=== PATIENT | female | born 1995 | race Caucasian/White ===

== ENCOUNTER → 2021-06-14 13:03 | Outpatient (BNVA) | payer BC, MEDICAID, SELFPAY | PROVIDERS: Visit Provider Obstetrics & Gynecology | DX: Z34.90 Encounter for supervision of normal pregnancy, unspecified, unspecified trimester (principal); Z3A.00 Weeks of gestation of pregnancy not specified | CPT/HCPCS: 80307; 81000; 82950; 85027; 86592; 86762; 86803; 86850; 86900; 87086; 87340 ==

== ENCOUNTER → 2021-06-20 15:21 | Outpatient (BNVA) | payer BC, MEDICAID, SELFPAY | PROVIDERS: PCP Nurse Practitioner Family; Visit Provider Obstetrics & Gynecology | DX: Z12.4 Encounter for screening for malignant neoplasm of cervix (principal); Z34.80 Encounter for supervision of other normal pregnancy, unspecified trimester; O99.891 Other specified diseases and conditions complicating pregnancy; Z3A.00 Weeks of gestation of pregnancy not specified | CPT/HCPCS: 81000; 87491; 87591; 88175 ==

== ENCOUNTER → 2021-06-28 11:10 | Outpatient (BNVA) | payer BC, MEDICAID, SELFPAY | PROVIDERS: PCP Nurse Practitioner Family; Visit Provider Obstetrics & Gynecology | DX: Z34.90 Encounter for supervision of normal pregnancy, unspecified, unspecified trimester (principal); Z3A.00 Weeks of gestation of pregnancy not specified | CPT/HCPCS: 86850 ==

== ENCOUNTER → 2021-07-12 15:02 | Outpatient (BNVA) | payer BC, MEDICAID, SELFPAY | PROVIDERS: PCP Nurse Practitioner Family; Visit Provider Obstetrics & Gynecology | DX: Z34.80 Encounter for supervision of other normal pregnancy, unspecified trimester (principal); Z3A.00 Weeks of gestation of pregnancy not specified | CPT/HCPCS: 80307; 81000 ==

== ENCOUNTER → 2021-07-25 13:17 | Outpatient (BNVA) | payer BC, MEDICAID, SELFPAY | PROVIDERS: PCP Nurse Practitioner Family; Visit Provider Obstetrics & Gynecology | DX: Z34.80 Encounter for supervision of other normal pregnancy, unspecified trimester (principal); Z3A.00 Weeks of gestation of pregnancy not specified | CPT/HCPCS: 81000 ==

== ENCOUNTER → 2021-08-12 14:49 | Outpatient (BNVA) | payer BC, MEDICAID, SELFPAY | PROVIDERS: PCP Nurse Practitioner Family; Visit Provider Nurse Practitioner Women's Health | DX: O99.320 Drug use complicating pregnancy, unspecified trimester (principal); Z3A.00 Weeks of gestation of pregnancy not specified | CPT/HCPCS: 80307; 84315 ==

== ENCOUNTER → 2021-08-23 10:14 | Outpatient (BNVA) | payer BC, MEDICAID, SELFPAY | PROVIDERS: PCP Nurse Practitioner Family; Visit Provider Obstetrics & Gynecology | DX: Z34.90 Encounter for supervision of normal pregnancy, unspecified, unspecified trimester (principal); Z3A.00 Weeks of gestation of pregnancy not specified | CPT/HCPCS: 81000; 87081 ==

== ENCOUNTER → 2021-08-31 12:45 | Outpatient (BNVA) | payer BC, MEDICAID, SELFPAY | PROVIDERS: PCP Nurse Practitioner Family; Visit Provider Obstetrics & Gynecology | DX: Z34.90 Encounter for supervision of normal pregnancy, unspecified, unspecified trimester (principal) | CPT/HCPCS: 81000 ==

== ENCOUNTER → 2021-09-06 15:12 | Outpatient (BNVA) | payer BC, MEDICAID, SELFPAY | PROVIDERS: PCP Nurse Practitioner Family; Visit Provider Obstetrics & Gynecology | DX: Z34.90 Encounter for supervision of normal pregnancy, unspecified, unspecified trimester (principal); Z3A.00 Weeks of gestation of pregnancy not specified | CPT/HCPCS: 81000 ==

== ENCOUNTER 2021-09-09 08:30 | Inpatient (IN) | payer BC, MEDICAID, SELFPAY ==
[2021-09-09] VITALS (82 sets, daily range): BP systolic 102–152; BP diastolic 54–95; PULSE 61–96; RESP 16; TEMP 36.3–36.7; O2SAT 99–100; BMI 30.2
[2021-09-09 09:23] LABS: Basophils # 0.1 10^3/uL (0.0-0.1); Basophils % 0.7 %; Eosinophils # 0.2 10^3/uL (0.0-0.8); Eosinophils % 1.9 %; Hematocrit 33.9 % (37.0-47.0); Hemoglobin 11.3 g/dL (11.5-15.3); Lymphocytes # 3.7 10^3/uL (0.8-4.8); Lymphocytes % 28.5 %; Mean Corpuscular HGB Conc 33.3 g/dL (30.0-36.0); Mean Corpuscular Hemoglobin 30.1 pg (28.0-34.0); Mean Corpuscular Volume 90.4 fl (81-99); Mean Platelet Volume 10.8 fL (7.4-10.4); Monocytes # 1.1 10^3/uL (0.2-0.9); Monocytes % 8.3 %; Neutrophils # 7.71 10^3/uL (1.8-7.7); Nucleated Red Blood Cells % 0 %; Platelet Count 404 10^3/cmm (130-400); Red Blood Count 3.75 10^6/uL (4.1-5.3); Red Cell Distribution Width 13.6 % (12.1-15.1); White Blood Count 12.8 10^3/uL (4.0-10.0)
[2021-09-09] MEDS: miSOPROStol 100 mcg tablet 25 MCG VAGINAL (09:35)
[2021-09-09 09:42] LABS: Amphetamines Screen Urine Negative (Negative); Barbiturates Screen Urine Negative (Negative); Benzodiazepines Screen Urine Negative (Negative); Cocaine Screen Urine Negative (Negative); Opiate Screen Urine Negative (Negative); PCP Screen Urine Negative (Negative); THC Screen Urine Positive (Negative)
[2021-09-09] MEDS: lactated ringers 1,000 ML 999 ML IV (12:07)
--- NOTE | 2021-09-09 13:08 | P.ANESASSM_ITS ---
Pre-Anesthetic Assessment Height/Weight: Height 1.57 m Weight 74.843 kg Temp Pulse Resp BP Pulse Ox 97.3 F L 76 16 116/54 99 09/09/21 11:02 09/09/21 13:04 09/09/21 09:23 09/09/21 13:03 09/09/21 13:04 Epidural Familial anesthetic complications: patient developed PDPH with one of her previous epidurals - stated she had signicant parasthesia and jumped during procedure Was Beta Candy taken within 24 hours: N/A Was Clonidine taken within 24 hours: N/A Last intake: ice chips Social No alcohol and No tobacco Exam alert, oriented x 3, clear to auscultation bilaterally and regular rate & rhythm Airway Submandibular: within normal limits Mallampati: Class I Dentition: full Anesthetic Plan ASA status: 2 Anesthesia: Regional (specify below) (epidural) Risk of > 500 ml blood loss (7ml/kg in children): No Medications/Allergies Home Medications Medication Instructions Recorded Confirmed Last Taken Type prenat.vits,connie,bcb-ocxs-rtoin 1 tab PO DAILY 06/14/21 09/06/21 Unknown History acetaminophen 500 mg tablet 500 mg PO Q6H PRN 06/20/21 09/06/21 Unknown History (Tylenol Extra Strength) breast pump (Pump In Style #1 ea 07/12/21 09/06/21 Unknown Rx Advanced) Allergies Allergy/AdvReac Type Severity Reaction Status Date / Time hydrocodone AdvReac nausea Verified 09/06/21 14:59 Current Medications Generic Name Dose Route Start Last Admin Trade Name Freq PRN Reason Stop Dose Admin Lactated Ringer's 1,000 mls @ 999 mls/hr 09/09/21 11:51 09/09/21 12:07 Lactated Ringers IV 999 mls/hr .Q1H1M PRN Administration See label comments Misoprostol 25 mcg 09/09/21 09:30 09/09/21 09:35 Misoprostol 100 Mcg Tablet VAGINAL 09/09/21 17:31 25 mcg Q4H KVNG Administration PFSH Anesthesia Medical History No pertinent past medical history Denies diabetes, asthma, hypertension, seizures, DVT/PE PCP: Melany Villafana, [employer] Surgical History No history of previous surgery Family History Mother Hypertension Stroke Sister Thyroid condition 1/2 sister Grandmother Colon cancer maternal, diagnosed at age 76 paternal, age at diagnosis unknown Grandfather Colon cancer paternal, age at diagnosis unknown Denies family history of Ovarian cancer Diabetes Heart disease Hyperlipidemia Breast cancer Uterine cancer Female Reproductive History : 5 Data Anesthesia : 09/09/21 08:44 Short CBC 09/09/21 Range/Units 08:44 WBC 12.8 H (4.0-10.0) 10^3/uL Hgb 11.3 L (11.5-15.3) g/dL Hct 33.9 L (37.0-47.0) % MCV 90.4 (81-99) fl Plt Count 404 H (130-400) 10^3/cmm Neut % (Auto) 60.0 % Neut # (Auto) 7.71 H (1.8-7.7) 10^3/uL Cardiac Studies: No Data to Display
--- NOTE | 2021-09-09 13:09 | ANES.PROC ---
Anesthesia Procedures Procedure/Date: 09/09/21 Epidural: Time Out Performed: Yes Consents Signed: Procedure Consent Consent: requested by attending/covering physician, from patient, from other, risks and benefits reviewed and patient agrees to proceed Lumbar Level: L3-L4 Epidural position: sitting Epidural procedure: sterile prep of area, 1% lidocaine to numb the area, 18 g needle, negative for paresthesia passed, neg for paresthesia, test dose given, 1.5% xylocaine 1:200k epi (3), 0.2% Ropivacaine bolus ml (5), placed PCEA, no systemic response, sterile dressing applied, L.U.D. no apparent complications and 0.2% Ropiavacaine @ mls/hr (13) Additional Comments: LEYDA at 5 cm, threaded to 11 cm
[2021-09-09] MEDS: dextrose 5%-lactated ringers 1,000 ML 125 ML IV ×2 (14:00→18:17)
[2021-09-09] MEDS: ondansetron 2 mg/ML SDV 2 mL 4 MG IVP (16:02)
[2021-09-09] MEDS: oxytocin 30 UNIT/500 ML BAG IV (19:20)
--- NOTE | 2021-09-09 20:02 | PM.OPHPUD ---
Labor & Delivery H&P Update Date of Procedure: September 09, 2021 Date H&P Performed: 09/06/21 H&P update information: I have reviewed H&P completed within last 30 days, I have examined patient prior to procedure and Changes to prior documentation as noted here Changes to previous documentation: cervix is now 2/75/-3. Patient is vira irregularly. She is here for induction of labor for IUGR Admission Diagnosis:
--- NOTE | 2021-09-09 20:04 | PM.OPHPUD ---
Labor & Delivery H&P Update Date of Procedure: September 09, 2021 Date H&P Performed: 09/06/21 Admission Diagnosis: Related Problem List Diagnoses (1) IUGR (intrauterine growth restriction) affecting care of mother: (2) Atypical squamous cells cannot exclude high grade squamous intraepithelial lesion on cytologic smear of cervix (ASC-H): (3) Rubella non-immune status, antepartum: (4) Drug use affecting , antepartum: (5) Grand multiparity: (6) Rh negative, antepartum: (7) Supervision of normal : (8) Request for sterilization:
--- NOTE | 2021-09-09 20:39 | P.PCNOB_ITS ---
Delivery Note: Date of delivery: September 09, 2021 Pre-delivery diagnoses: iugr, rh negative, grand multiparity, request for sterilization, IUP@ 39 0/7 weeks Post-delivery diagnoses: same-delivered Procedure: Delivering Physician: Chris Estimated blood loss (mL): 3 Findings: term male in the ALEJANDRO presentation Pre-Delivery Course: The patient was admitted for induction at term for IUGR. She received a single dose of cytotec and began to have regular contractions. She had AROM and made a little change. Pitocin was started to a max of 3 mUnints. She had complete cervical dilation and began pushing Delivery: The patient had complete cervical dilation and began to push. The head delivered in the ALEJANDRO position over an intact perineum under epidural anesthesia. The nose and mouth were bulb suctioned. The shoulders and body delivered atraumatically. The baby was placed onto the mother's abdomen. The cord was clamped and cut. Cord blood was obtained. The placenta delivered spontaneously. It was inspected and found to be intact. Inspection of the perineum revealed no repair was required it was intact. Estimated blood loss 3 mL. Apgars on baby were 8 at 1 minute and 9 at 5 minutes. Weight of baby is 6 pounds 4 ounces. Mother and baby were stable post delivery. History History History 5 Term 3 Miscarriages/Ectopic 0 1 Living Children 4 Coding Level of Care Code Acute Mortgage Loan Counselor for Ileanag Jass
[2021-09-10] VITALS (12 sets, daily range): BP systolic 106–132; BP diastolic 58–75; PULSE 64–81; RESP 15–16; TEMP 35.8–36.6
[2021-09-10] MEDS: ibuprofen 800 mg tablet PO ×4 (00:28→20:29)
[2021-09-10] MEDS: benzocaine-menthol 78 gm Canister 1 SPRAY TOPICAL (00:30)
[2021-09-10] MEDS: acetaminophen 325 mg Tablet 650 MG PO ×2 (05:36→14:26)
--- NOTE | 2021-09-10 07:27 | ANE.PACU2 ---
Inpatient post-anesthesia follow up: Airway intact: Yes Vital signs: Temperature 98.1 F Pulse Rate 76 Respiratory Rate 16 Blood Pressure 114/70 Pulse Oximetry 99 Oxygen Delivery Me thod Room Air Oxygen Flow Rate Fraction of Inspir ed Oxygen Hydration adequate: Yes Nausea and vomiting: No Pain level: 1 Mental status: Baseline
[2021-09-10] MEDS: sodium chloride 0.9% 1,000 ML 999 ML IV (08:16)
[2021-09-10] MEDS: famotidine 20 mg/2 mL INJ IVP (08:32)
[2021-09-10] MEDS: citric acid-sodium citrate 30 mL UDC PO (08:32)
[2021-09-10] MEDS: metoclopramide 5 mg/mL SDV 2 mL 10 MG IVP (08:33)
--- NOTE | 2021-09-10 09:15 | PM.DCS ---
Discharge Providers Date of Admission: 09/09/21 08:30 Date of Discharge: September 10, 2021 Attending Provider at Admission: Magali Perez MD Attending Provider at Discharge: Magali Perez MD Primary Care Provider: Xochitl Villafana APN Diagnoses at Discharge Discharge Diagnosis (1) IUGR (intrauterine growth restriction) affecting care of mother: Status: Acute (2) Atypical squamous cells cannot exclude high grade squamous intraepithelial lesion on cytologic smear of cervix (ASC-H): Status: Acute (3) Rubella non-immune status, antepartum: Status: Acute (4) Drug use affecting , antepartum: Status: Acute (5) Grand multiparity: Status: Acute (6) Rh negative, antepartum: Status: Acute (7) Supervision of normal : Status: Acute (8) Request for sterilization: Status: Acute Reason for Visit Reason for Visit: induction Hospital Course Hospital Course The patient was admitted for induction of labor at term for iugr. She had spontaneous delivery of a term male . She did well . She desired a tubal ligation, but changed her mind the morning of surgery and decided that her partner would get a vasectomy instead. Physical Exam Narrative: Doing well. No concerns this morning. Refused to have tubal ligation as she has changed her mind. States, partner will get vasectomy, instead. Const: COMMON NORMALS: no acute distress, average body habitus, patient oriented x3, no limitations, healthy appearing, alert and well nourished GENERAL APPEARANCE: cooperative, comfortable, well kempt and well developed ORIENTATION/CONSCIOUSNESS: Yes awake, Yes oriented to person, Yes oriented to place and Yes oriented to time Resp: COMMON NORMALS: normal respiratory effort EFFORT & INSPECTION: Yes able to speak in complete sentences GI: COMMON NORMALS: Soft to palpation and non-tender PALPATION: Yes Soft to palpation Extremity: COMMON NORMALS: no calf tenderness Neuro: COMMON NORMALS: patient oriented x3 SENSORIUM/ORIENTATION: Yes alert, Yes oriented to person, Yes oriented to place and Yes oriented to time Psych: APPEARANCE: Yes well kempt Urinary Catheter Management: Rodriguez: Cath Placed During This Visit: yes, but has since been removed by the nurse Reason for Continuing Indwelling Catheter: Decision to DC Catheter Urinary Catheter Date of Insertion: 09/09/21 Urinary Catheter Time of Insertion: 13:30 Date Urinary Catheter Removed: 09/09/21 Time Urinary Catheter Discontinued: 20:22 Discharge Data Studies Completed and Pending Pending at discharge Category Date Time Status Hemagram Timed Lab 09/10/21 08:37 Received Laboratory Results WBC 12.8 10^3/uL (4.0-10.0) H 09/09/21 08:44 RBC 3.75 10^6/uL (4.1-5.3) L 09/09/21 08:44 Hgb 11.3 g/dL (11.5-15.3) L 09/09/21 08:44 Hct 33.9 % (37.0-47.0) L 09/09/21 08:44 MCV 90.4 fl (81-99) 09/09/21 08:44 MCH 30.1 pg (28.0-34.0) 09/09/21 08:44 MCHC 33.3 g/dL (30.0-36.0) 09/09/21 08:44 RDW 13.6 % (12.1-15.1) 09/09/21 08:44 Plt Count 404 10^3/cmm (130-400) H 09/09/21 08:44 MPV 10.8 fL (7.4-10.4) H 09/09/21 08:44 Neut % (Auto) 60.0 % 09/09/21 08:44 Lymph % (Auto) 28.5 % 09/09/21 08:44 [place] % (Auto) 8.3 % 09/09/21 08:44 Eos % (Auto) 1.9 % 09/09/21 08:44 Baso % (Auto) 0.7 % 09/09/21 08:44 Neut # (Auto) 7.71 10^3/uL (1.8-7.7) H 09/09/21 08:44 Lymph # (Auto) 3.7 10^3/uL (0.8-4.8) 09/09/21 08:44 [place] # (Auto) 1.1 10^3/uL (0.2-0.9) H 09/09/21 08:44 Eos # (Auto) 0.2 10^3/uL (0.0-0.8) 09/09/21 08:44 Baso # (Auto) 0.1 10^3/uL (0.0-0.1) 09/09/21 08:44 Nucleated RBC % (auto) 0 % 09/09/21 08:44 Nucleated RBCs # 0.0 /100WBC 09/09/21 08:44 Urine Opiates Screen Negative ng/mL (Negative) 09/09/21 08:42 Ur Barbiturates Screen Negative ng/mL (Negative) 09/09/21 08:42 Ur Phencyclidine Scrn Negative ng/mL (Negative) 09/09/21 08:42 Ur Amphetamines Screen Negative ng/mL (Negative) 09/09/21 08:42 U Benzodiazepines Scrn Negative ng/mL (Negative) 09/09/21 08:42 Urine Cocaine Screen Negative ng/mL (Negative) 09/09/21 08:42 U Marijuana (THC) Screen Positive ng/mL (Negative) H 09/09/21 08:42 Vitals Last Vital Signs Temp 98.1 F 09/09/21 22:21 Pulse 76 09/10/21 06:29 Resp 16 09/09/21 20:37 BP 114/70 09/10/21 06:29 Pulse Ox 99 09/09/21 13:49 Discharge Plan Discharge Patient Disposition: Home Condition: Stable Prescriptions: Continued acetaminophen [Tylenol Extra Strength] 500 mg tablet 500 mg PO Q6H PRN0RF (DME) breast pump [Pump In Style Advanced] Device See Rx Instructions .MEDSUPPLY Qty: 1 0RF Rx Instructions: As directed prenat.vits,connie,[id number] Tablet 1 tab PO DAILY 0RF Discharge Orders: Discharge Order (Routine); Ordered 09/10/21 Ordered By: Magali Perez Patient Instructions: Opioid Safety Discharge Attestations Time Spent in Discharge Care*: less than 30 min Quality Metrics Clinical Quality Measures [ No reported AMI, CVA or VTE this stay] Coding Level of Care Code Acute Chg FW DC note Diagnoses IUGR (intrauterine growth restriction) affecting care of mother O36.5905 Atypical squamous cells cannot exclude high grade squamous intraepithelial lesion on cytologic smear of cervix (ASC-H) R87.611 Rubella non-immune status, antepartum O99.891; Z28.3 Drug use affecting , antepartum O99.320 Grand multiparity Z64.1 Rh negative, antepartum O26.899; Z67.91 Supervision of normal Z34.90 Request for sterilization Z30.2
[2021-09-10] MEDS: docusate sodium 100 mg Capsule PO (09:25)
[2021-09-10 09:26] LABS: Hematocrit 30.3 % (37.0-47.0); Hemoglobin 10.2 g/dL (11.5-15.3); Mean Corpuscular HGB Conc 33.7 g/dL (30.0-36.0); Mean Corpuscular Hemoglobin 29.9 pg (28.0-34.0); Mean Corpuscular Volume 88.9 fl (81-99); Mean Platelet Volume 11.1 fL (7.4-10.4); Platelet Count 354 10^3/cmm (130-400); Red Blood Count 3.41 10^6/uL (4.1-5.3); Red Cell Distribution Width 13.8 % (12.1-15.1); White Blood Count 17.4 10^3/uL (4.0-10.0)
[2021-09-10] MEDS: prenatal vitamin Capsule 1 CAP PO (09:26)
[2021-09-10] MEDS: measles,mumps,rubella pf Vial (w/diluent) 0.5 ML SUBCUT (21:59)
== END 2021-09-10 21:59 | disposition home or self-care (01) | DRG 806 ==
LOC: OPOB 15:02 → OBGYN 15:02
PROVIDERS: Admitting Provider Obstetrics & Gynecology; PCP Nurse Practitioner Family; Visit Provider Obstetrics & Gynecology
DX: O36.5930 Maternal care for other known or suspected poor fetal growth, third trimester, not applicable or unspecified (principal); O99.324 Drug use complicating childbirth; Z37.0 Single live birth; O36.0930 Maternal care for other rhesus isoimmunization, third trimester, not applicable or unspecified; F12.90 Cannabis use, unspecified, uncomplicated; Z3A.39 39 weeks gestation of pregnancy; Z88.8 Allergy status to other drugs, medicaments and biological substances; Z87.891 Personal history of nicotine dependence; O28.2 Abnormal cytological finding on antenatal screening of mother
CPT/HCPCS: 36415; 51702; 59409; 80306; 85025; 85027; 85460; 86850; 86900; 90384; 90707; 96372; J2405; J2765; J2795; J3490; J7030

== ENCOUNTER → 2021-10-11 15:46 | Outpatient (BNVA) | payer BC, MEDICAID, SELFPAY | PROVIDERS: PCP Nurse Practitioner Family; Visit Provider Obstetrics & Gynecology | DX: R87.611 Atypical squamous cells cannot exclude high grade squamous intraepithelial lesion on cytologic smear of cervix (ASC-H) (principal); Z12.4 Encounter for screening for malignant neoplasm of cervix; R87.619 Unspecified abnormal cytological findings in specimens from cervix uteri | CPT/HCPCS: 81025; 88175; 88305; 88342 ==

== ENCOUNTER → 2022-02-01 14:06 | Outpatient (BNVA) | payer BC, MEDICAID, SELFPAY | PROVIDERS: PCP Nurse Practitioner Family; Visit Provider Obstetrics & Gynecology | DX: N87.1 Moderate cervical dysplasia (principal) | CPT/HCPCS: 88307 ==